=== PATIENT | female | born 1985 | race Two or more races ===

== ENCOUNTER 2019-06-02 18:56 | Emergency (ER) | payer OTHER ==
[~2019-06-02] VITALS: Ht 162.6 cm; Wt 54.4 kg
== END 2019-06-02 20:52 | disposition home or self-care (01) ==
LOC: ER 18:56
DX: T21.11XA Burn of first degree of chest wall, initial encounter (principal); T23.102A Burn of first degree of left hand, unspecified site, initial encounter; T20.10XA Burn of first degree of head, face, and neck, unspecified site, initial encounter; T79.8XXA Other early complications of trauma, initial encounter; X10.2XXA Contact with fats and cooking oils, initial encounter; Y93.G3 Activity, cooking and baking; Y92.010 Kitchen of single-family (private) house as the place of occurrence of the external cause; Y99.8 Other external cause status

== ENCOUNTER → 2019-06-13 | Emergency (ER) | payer OTHER ==
[~2019-06-13] VITALS: Ht 162.6 cm; Wt 54.4 kg
== END | disposition left against medical advice (07) ==
LOC: ER 16:16
DX: Z53.20 Procedure and treatment not carried out because of patient's decision for unspecified reasons (principal)